=== PATIENT | male | born 1980 | race African-American/Black ===

== ENCOUNTER 2016-06-28 06:39 | Emergency (ER) | payer OTHER ==
[2016-06-28 06:48] VITALS: TEMP 98.5; BMI 22.2
[2016-06-28] MEDS ORDERED: KETOROLAC TROMETHAMINE 60 MG/2 ML VIAL IM ONE (07:34)
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
[2016-06-28] MEDS ORDERED: KETOROLAC TROMETHAMINE 60 MG/2 ML VIAL ONE (07:42)
[2016-06-28] MEDS ORDERED: BACITRACIN 0.9 GM PACKET ONE (09:22)
[2016-06-28 09:46] VITALS: BP 118/81; PULSE 79
== END 2016-06-28 09:46 | disposition home or self-care (01) ==
LOC: JER 06:39
PROC: 3E0233Z Introduction of Anti-inflammatory into Muscle, Percutaneous Approach (ICD-10-PCS; principal; 2016-06-28)
DX: S05.12XA Contusion of eyeball and orbital tissues, left eye, initial encounter (principal); S00.81XA Abrasion of other part of head, initial encounter; V03.10XA Pedestrian on foot injured in collision with car, pick-up truck or van in traffic accident, initial encounter; Y92.414 Local residential or business street as the place of occurrence of the external cause; Y93.89 Activity, other specified; Y99.8 Other external cause status
CPT/HCPCS: 70480-TC; 99284-25